=== PATIENT | male | born 1950 | race Caucasian/White ===

== ENCOUNTER → 2016-08-27 | Outpatient (CLI) | payer MEDICARE ==
[~2016-08-27] MED LIST: OPTIRAY 320 IV PRN
[2016-08-27 14:25] LABS: BLOOD UREA NITROGEN 11 mg/dl (7-18); CREATININE 0.89 mg/dl (0.60-1.40)
--- NOTE | 2016-08-27 16:23 | DIAGNOSTIC IMAGING REPORT ---
CT OF THE ABDOMEN AND PELVIS WITH CONTRAST CLINICAL HISTORY: Acute left lower quadrant pain. COMPARISON STUDY: CT of the abdomen and pelvis January 26, 2016. TECHNIQUE: Following IV administration of 118 mL of Optiray-320, axial images of the abdomen and pelvis were obtained from the lung bases to the proximal femurs. Images were reviewed in the axial, sagittal, and coronal planes. IV contrast was administered without complication. Oral contrast was administered. CT DOSE: 549.06 mGy.cm FINDINGS: There is fatty infiltration of the liver. Several hypodense left hepatic lobe lesions likely reflect cysts. The spleen, adrenal glands, kidneys and pancreas are unremarkable. There is no hydronephrosis. No pneumatosis, free air or portal venous gas is present. There is extensive sigmoid diverticulosis. There is moderate inflammation centered on the mid to distal sigmoid colon with wall thickening. There is no free air or abscess. There may be mild bladder wall thickening. There is no gas within the bladder. No suspicious skeletal lesions are identified. The appendix is normal. There is no lymphadenopathy. IMPRESSION: Acute sigmoid diverticulitis. Moderate pericolonic inflammation. No free air or abscess. Infiltration adjacent to the bladder with suspected mild bladder wall thickening. No gas within the bladder. Electronically signed by: Flaco Hughes M.D. 08/27/2016 4:21 PM Dictated Date/Time: 08/27/2016 4:13 PM
== END | disposition home or self-care (01) ==
LOC: C.CTS 13:28
PROVIDERS: ATTEND Family Medicine
DX: R10.32 Left lower quadrant pain (principal); K57.32 Diverticulitis of large intestine without perforation or abscess without bleeding; K52.89 Other specified noninfective gastroenteritis and colitis

== ENCOUNTER → 2016-09-09 | Outpatient (CLI) | payer MEDICARE ==
--- NOTE | 2016-09-17 10:23 | CODING QUERY MEDICAL NECESSITY ---
SUPPORTING DIAGNOSIS NEEDED A supporting diagnosis is required for the test/procedure performed on this patient in order for us to be reimbursed by the patient's insurance. Please provide a supporting diagnosis for the following test/procedure listed below next to the test name along with your signature. *If there is no additional diagnosis for this patient that would support the following test/procedure please document that below next to the test/procedure. Test(s)/Procedure(s) that require a supporting diagnosis: * PSA DIAGNOSIS: * DOS: 09/09/16 Provider Signature: Date: Thank you Lyn Palmer [employer] Once completed, please kindly fax back to [phone] For questions please call [phone]
== END | disposition home or self-care (01) ==
LOC: C.LABMFLN 12:25
PROVIDERS: ATTEND Urology
DX: R93.41 Abnormal radiologic findings on diagnostic imaging of renal pelvis, ureter, or bladder (principal); Z12.5 Encounter for screening for malignant neoplasm of prostate

== ENCOUNTER → 2016-11-08 | Outpatient (CLI) | payer MEDICARE ==
--- NOTE | 2016-11-08 08:32 | DIAGNOSTIC IMAGING REPORT ---
CT OF THE CHEST WITHOUT IV CONTRAST CLINICAL HISTORY: Multiple pulmonary nodules. COMPARISON STUDY: Chest CT February 13, 2016 and May 23, 2016. CT DOSE: 455.74 mGycm TECHNIQUE: Axial images of the chest were obtained without IV contrast. Images were reviewed in the axial, sagittal, and coronal planes. IV contrast was not administered for this examination. FINDINGS: No enlarged axillary, mediastinal or hilar lymph nodes are present. The size of the heart is normal. Central airways are patent. There is mild emphysema. Several pulmonary nodules are unchanged since initial chest CT of February 13, 2016. These include a 9 mm left upper lobe nodule shown image 141 of 341, a 7 mm left lower lobe nodule shown image 166 and a 5 mm right lower lobe nodule shown image 196. There are no new nodules. Linear right apical density is unchanged and likely reflects scarring. A 8 mm groundglass nodular density within the right upper lobe is unchanged as well. No pneumothorax or pleural effusions present. A few hypodense hepatic lesions likely reflect cysts. These are unchanged. IMPRESSION: 1. No change in several pulmonary nodules since initial chest CT of February 13, 2016. A follow-up chest CT in 6 months to ensure stability is recommended. 2. No thoracic lymphadenopathy. 3. Mild emphysema. Electronically signed by: Flaco Hughes M.D. 11/08/2016 8:29 AM Dictated Date/Time: 11/08/2016 8:14 AM
== END | disposition home or self-care (01) ==
LOC: C.CTS 08:03
PROVIDERS: ATTEND Family Medicine
DX: R91.8 Other nonspecific abnormal finding of lung field (principal)

== ENCOUNTER → 2016-11-26 | Outpatient (CLI) | payer MEDICARE ==
[2016-11-26 14:08] LABS: BASO % 0.7 %; BASO ABS # 0.03 K/uL (0-0.2); COMPLETE YES; EOS % 6.3 %; HEMATOCRIT 45.7 % (42-52); LYMPH % 23.7 %; LYMPH ABS # 0.97 K/uL (1.2-3.4); MEAN CELL VOLUME 98.7 fL (80-100); MEAN CORPUSCULAR HEMOGLOBIN 32.2 pg (25-34); MEAN CORPUSCULAR HGB CONC 32.6 g/dl (32-36); MEAN PLATELET VOLUME 10.6 fL (7.4-10.4); NEUT % 49.3 %; PLATELET COUNT 216 K/uL (130-400); RED BLOOD COUNT 4.63 M/uL (4.7-6.1)
[2016-11-26 14:34] LABS: ALT/SGPT 34 U/L (12-78); AST/SGOT 18 U/L (15-37); BLOOD UREA NITROGEN 16 mg/dl (7-18); BUN/CREATININE RATIO 18.3 (10-20); CALCIUM 8.8 mg/dl (8.5-10.1); CARBON DIOXIDE 33 mmol/L (21-32); CHLORIDE 104 mmol/L (98-107); CREATININE 0.86 mg/dl (0.60-1.40); GLUCOSE 99 mg/dl (70-99); POTASSIUM 4.3 mmol/L (3.5-5.1); SODIUM 139 mmol/L (136-145)
[2016-11-26 14:43] LABS: ALKALINE PHOSPHATASE 64 U/L (45-117); CHOLESTEROL 145 mg/dl (0-200); HDL CHOLESTEROL 48 mg/dl; LDL CHOLESTEROL CALCULATED 77 mg/dl; TRIGLYCERIDES 102 mg/dl (0-150); VERY LOW DENSITY LIPOPROT CALC 20 mg/dl
== END | disposition home or self-care (01) ==
LOC: C.LABMFLN 10:39
PROVIDERS: ATTEND Family Medicine
DX: K21.9 Gastro-esophageal reflux disease without esophagitis (principal); E78.5 Hyperlipidemia, unspecified; E03.9 Hypothyroidism, unspecified

== ENCOUNTER → 2017-05-20 | Outpatient (CLI) | payer MEDICARE | END | disposition home or self-care (01) | LOC: C.LABMFLN 12:54 | PROVIDERS: ATTEND Family Medicine | DX: M10.9 Gout, unspecified (principal) ==

== ENCOUNTER → 2017-05-21 | Outpatient (CLI) | payer MEDICARE ==
--- NOTE | 2017-05-21 08:35 | DIAGNOSTIC IMAGING REPORT ---
(CHEST) THORAX WITHOUT CT DOSE: 343.92 mGy.cm CLINICAL HISTORY: 67 years-old Male with R91.8 Multiple pulmonary nodules. Follow-up study to assess pulmonary nodules. TECHNIQUE: Multiaxial CT images of the chest were performed without contrast. A dose lowering technique was utilized adhering to the principles of ALARA. COMPARISON: Chest CT 11/08/2016, 05/23/2016, 02/13/2016. FINDINGS: No dominant thyroid nodule identified. Evaluation for adenopathy is limited without use of IV contrast. Mildly prominent peritracheal, precarinal and subcarinal lymph nodes are seen measuring up to 8 mm in short axis, unchanged and likely physiologic. Heart is normal in size without pericardial effusion. Aortic annular calcifications are noted as well as coronary arterial disease. There is mild atherosclerotic plaquing of the thoracic aorta and origin of the great vessels. Mild centrilobular and paraseptal upper lobe predominant emphysematous changes are noted with multifocal areas of subcutaneous segmental pleural parenchymal scarring. Small right Bochdalek hernia. 7 mm solid nodular lesion within the super segment left lower lobe abutting the fissure is unchanged on image 162 of series 4 suggesting a eri-fissural lymph node. 5 mm solid pulmonary nodule of the right lower lobe abutting the major fissure on image 188 of series 4 is also unchanged suggesting an additional eri-fissural lymph node. 8 mm diaphragmatic based nodular opacity of the posterior basal segment left lower lobe on image 311 of series 4 is also stable dating back to 02/13/2016. 5 mm nodular opacity on image 126 of series 4 abutting the minor fissures compatible with lymph node, unchanged. Previously described 8 mm groundglass nodule of the right upper lobe on image 115 series 4 study dated 11/08/2016 appears unchanged in size on image 107 series 4 however appears slightly more dense and conspicuous from original study 02/13/2016. Focal area of scarring within the apical segment right upper lobe is unchanged on image 64 series 4. No new suspicious pulmonary nodules are identified. Biapical pleural-parenchymal scarring. Calcified granuloma of the apical segment right upper lobe. Mild dependent bibasilar atelectasis. Central airways are patent. Mild bronchial wall thickening bilaterally may reflect background bronchitis. Multiple low attenuating lesions of the liver are unchanged suggesting cysts. No acute amount of the imaged upper abdomen. Soft tissues are unremarkable. Bones appear intact. Multilevel endplate degenerative changes of the thoracic spine. IMPRESSION: 1. No acute intrathoracic abnormality identified. 2. Unchanged size of multiple pulmonary nodules and eri-fissural lymph nodes dating back to original study of 02/13/2016. Follow-up guidelines are provided below. 3. Mild upper lobe predominant paraseptal and centrilobular emphysema with areas of subsegmental pleural-parenchymal scarring. Please refer to below summary of Fleischner criteria recommendations for follow-up of incidental CT nodules (Darien Boykin, Guidelines for management of small pulmonary nodules detected on CT scans: A statement from the Fleischner Society, Radiology 237: [phone].) SOLID NODULES Solitary nodule size: <6 mm * Low risk patients: no follow-up needed * high risk patients: optional CT at 12 months Solitary nodule size: 6-8 mm * Low risk patients: follow-up at 6-12 months, then consider further follow-up at 18-24 months * high risk patients: initial follow-up CT at 6-12 months and then at 18-24 months if no change Solitary nodule size: >8 mm * either low or high risk patients - consider follow-up CT at 3 months, and/or CT-PET, and/or biopsy Multiple nodules size: <6 mm * Low risk patients: no routine follow-up * high risk patients: optional CT at 12 months Multiple nodules size: 6-8 mm * Low risk patients: follow-up at 3-6 months, then consider further follow-up at 18-24 months * high risk patients: follow-up at 3-6 months, then at 18-24 months if no change Multiple nodules size: >8 mm * Low risk patients: follow-up at 3-6 months, then consider further follow-up at 18-24 months * high risk patients: follow-up at 3-6 months, then at 18-24 months if no change Note: newly detected indeterminate nodule in persons 35 years of age or older. * Low risk patients: minimal or absent history of smoking and/or other known risk factors * high risk patients: history of smoking or of other known risk factors (e.g. first degree relative with lung cancer, or exposure to asbestos, radon, uranium) * if a nodule up to 8 mm is partly solid or is ground glass further follow-up is required after 24 months to exclude possible slow growing adenocarcinoma (DAWIT) SUBSOLID NODULES Solitary pure ground-glass nodule * nodule size <6 mm - no CT follow-up required * nodule size >=6 mm - follow-up CT at 6-12 months, then every 2 years until 5 years Solitary part-solid nodule * nodule size <6 mm - no CT follow-up required * nodule size >=6 mm - follow-up CT at 3-6 months. If unchanged, and solid component remains <6 mm, then annual follow-up for 5 years Multiple subsolid nodules * nodule size <6 mm - follow-up CT at 3-6 months, consider further follow-up at 2 and 4 years if stable * nodule size >=6 mm - follow-up CT at 3-6 months, subsequent management based on the most suspicious nodule(s) The above report was generated using voice recognition software. It may contain grammatical, syntax or spelling errors. Electronically signed by: Jeffery Swanson M.D. 05/21/2017 8:33 AM Dictated Date/Time: 05/21/2017 8:19 AM
== END | disposition home or self-care (01) ==
LOC: C.CTS 08:11
PROVIDERS: ATTEND Family Medicine
DX: R91.8 Other nonspecific abnormal finding of lung field (principal)

== ENCOUNTER → 2017-09-02 | Outpatient (CLI) | payer MEDICARE ==
[2017-09-02 17:57] LABS: BASO ABS # 0.04 K/uL (0-0.2); EOS % 4.1 %; EOS ABS # 0.17 K/uL (0-0.5); HEMATOCRIT 43.6 % (42-52); HEMOGLOBIN 14.7 g/dL (14.0-18.0); IG# 0.01 K/uL (0.00-0.02); LYMPH % 24.3 %; MEAN CELL VOLUME 100.2 fL (80-100); MEAN CORPUSCULAR HEMOGLOBIN 33.8 pg (25-34); MEAN CORPUSCULAR HGB CONC 33.7 g/dl (32-36); MEAN PLATELET VOLUME 11.1 fL (7.4-10.4); MONO % 12.7 %; MONO ABS # 0.52 K/uL (0.11-0.59); NEUT % 57.7 %; NEUT ABS # 2.37 K/uL (1.4-6.5); PLATELET COUNT 196 K/uL (130-400); RED CELL DISTRIBUTION WIDTH CV 13.2 % (11.5-14.5); RED CELL DISTRIBUTION WIDTH SD 48.3 fL (36.4-46.3); WHITE BLOOD COUNT 4.11 K/uL (4.8-10.8)
[2017-09-02 18:18] LABS: ALBUMIN 3.6 gm/dl (3.4-5.0); ALT/SGPT 46 U/L (12-78); BLOOD UREA NITROGEN 11 mg/dl (7-18); CALCIUM 8.6 mg/dl (8.5-10.1); CARBON DIOXIDE 28 mmol/L (21-32); CREATININE 0.82 mg/dl (0.60-1.40); GLUCOSE 86 mg/dl (70-99); LIPASE 119 U/L (73-393); POTASSIUM 4.2 mmol/L (3.5-5.1); SODIUM 137 mmol/L (136-145)
[2017-09-02 18:21] LABS: ALKALINE PHOSPHATASE 55 U/L (45-117); AST/SGOT 26 U/L (15-37); TOTAL PROTEIN 7.5 gm/dl (6.4-8.2)
== END | disposition home or self-care (01) ==
LOC: C.LABMFLN 09:42
PROVIDERS: ATTEND Urology
DX: Z12.5 Encounter for screening for malignant neoplasm of prostate (principal); R10.13 Epigastric pain

== ENCOUNTER → 2017-09-17 | Outpatient (CLI) | payer OTHER | LOC: C.LABMFLN 11:24 | PROVIDERS: ATTEND Urology | DX: N40.1 Benign prostatic hyperplasia with lower urinary tract symptoms (principal) ==

== ENCOUNTER → 2017-11-28 | Outpatient (CLI) | payer OTHER ==
[2017-11-28 12:40] LABS: BASO % 0.7 %; BASO ABS # 0.03 K/uL (0-0.2); EOS % 4.5 %; EOS ABS # 0.19 K/uL (0-0.5); HEMATOCRIT 43.6 % (42-52); HEMOGLOBIN 14.9 g/dL (14.0-18.0); IG# 0.01 K/uL (0.00-0.02); LYMPH % 22.2 %; LYMPH ABS # 0.94 K/uL (1.2-3.4); MEAN CELL VOLUME 98.6 fL (80-100); MEAN CORPUSCULAR HEMOGLOBIN 33.7 pg (25-34); MEAN CORPUSCULAR HGB CONC 34.2 g/dl (32-36); MEAN PLATELET VOLUME 10.6 fL (7.4-10.4); MONO % 13.5 %; MONO ABS # 0.57 K/uL (0.11-0.59); NEUT % 58.9 %; NEUT ABS # 2.49 K/uL (1.4-6.5); PLATELET COUNT 200 K/uL (130-400); RED CELL DISTRIBUTION WIDTH CV 13.5 % (11.5-14.5); RED CELL DISTRIBUTION WIDTH SD 48.5 fL (36.4-46.3); WHITE BLOOD COUNT 4.23 K/uL (4.8-10.8)
== END | disposition home or self-care (01) ==
LOC: C.LABMFLN 09:14
PROVIDERS: ATTEND Family Medicine
DX: Z12.5 Encounter for screening for malignant neoplasm of prostate (principal); D75.89 Other specified diseases of blood and blood-forming organs; E78.5 Hyperlipidemia, unspecified; E03.9 Hypothyroidism, unspecified